=== PATIENT | female | born 1965 | race African-American/Black ===

== ENCOUNTER → 2017-04-30 | Day surgery (SDC) | payer OTHER ==
[~2017-04-30] MED LIST: ACETAMINOPHEN/HYDROcodone 325 MG/5 MG TAB ONE; BUPIVACAINE/EPINEPHRINE 0.5% 50 ML VIAL ONE; DICL75 PO; HEPARIN SODIUM - IV 10,000 UNITS/10 ML VIAL ONE; ISOSULFAN BLUE 50 MG/5 ML VIAL SQ ONE; KETOROLAC TROMETHAMINE 30 MG/ML (IVP) VIAL IV PUSH ONE; LACTATED RINGER'S 1000 ML INJ 1,000 ML ONE; LISI5 PO; MEPERIDINE HCL 25 MG/ML VIAL ONE; MIDAZOLAM HCL 2 MG/2 ML VIAL ONE; ONDANSETRON HCL 4 MG/2 ML VIAL IV PUSH ONE; PROPOFOL 200 MG/20 ML AMP IV ONE; SODIUM CHLORIDE 0.9% INJ 10 ML ONE; ceFAZolin 2 GM PREMIX 50 ML ONE
--- NOTE | 2017-04-30 14:45 | TN ---
cc: JOE WAGNER M.D. DATE OF SURGERY: 04/30/2017 PREOPERATIVE DIAGNOSIS Right breast cancer, possibly metastatic. POSTOPERATIVE DIAGNOSIS Right breast cancer, possibly metastatic. PROCEDURE PERFORMED 1. Bcagvl-K-Juvf placement left subclavian vein with intraoperative fluoroscopy. 2. Injection and excision sentinel lymph node right axilla x5. SURGEON Joe Wagner MD SATELLITE MANAGER LOY Nava ANESTHESIA General LMA. COMPLICATIONS None. INDICATION FOR PROCEDURE Ms. Stone is a very pleasant 51-year-old female who felt a mass in her right breast. She underwent imaging and biopsy and this was found to be a poorly differentiated ductal carcinoma. A preoperative MRI imaging demonstrated questionable adenopathy in the right axilla concerning for metastatic disease. Because of her young age and her very aggressive tumor and the possibility of metastasis, she was advised to undergo neoadjuvant chemotherapy with Dr. Silver. Dr. Silver asked that Wswlyt-Q-Ouzy be placed. Risks and benefits of Cdsqvr-R-Shmq placement as well as sentinel lymph node excision was discussed with her in the office and she was agreeable. DETAILS OF PROCEDURE The patient was identified, brought to the operating room and placed supine on the operating table. After adequate general anesthesia was achieved with LMA, 5 ccs of isosulfan blue was injected into the right breast in the periareolar position as well as in the tumor itself in the lower outer quadrant. This was then massaged in the breast. The anterior chest and neck was then prepped and draped in standard surgical fashion. Attention was first directed to the left subclavian area where 0.25% Marcaine was injected around the left clavicle. The left subclavian vein was then accessed without difficulty using 18 gauge needle. Guidewire was advanced and followed to the level of superior vena cava. The subcutaneous pocket was then fashioned in the left anterior chest using sharp dissection. Next, the dilator was placed over the guidewire and followed to the level of superior vena cava under direct fluoroscopic vision. Next, the guidewire was removed and the catheter was inserted into the introducer. Catheter was advanced to 20 cm, was placed in the superior vena cava adjacent to the right atrium. The catheter was then brought down to the pocket and attached to the port with a locking device. Port was withdrawn and found to have good blood return and easy ability to flush. The port was then secured in the subcutaneous pocket using a 2-0 Prolene suture. Pocket was then injected with additional local anesthetic and closed in two layers using a 3-0 and 4-0 Vicryl. Sterile dressings were applied. Attention was now directed to the right axilla. The patient was reprepped and draped and gloves and gown were changed. The right axillary lymph node site was marked by preoperative imaging. It was confirmed with fluoroscopy. 0.25% Marcaine was injected and a transverse incision was made directly overlying the node. Dissection proceeded down into the subcutaneous tissue in the axilla proper where we immediately identified multiple blue channels going into a blue node. This blue node was grasped and excised and found to have a count of 13,587. It was blue and labeled sentinel node number one. Adjacent to this node was also a blue node which was excised and it had a count of 794. Adjacent to this node was a third blue node that was excised and had a count of 3156. After this we could see no other blue dye. Using the probe we identified two additional nodes. [place] node #4 was more proximal and up under the pectoralis major muscle. It had a 10-second count of 1078 and did not have any blue dye and sentinel node #5 had a count of 1718, also did not have any blue dye. Once we did this there was no other significant radioactivity in the axilla. By direct palpation I could not palpate any nodes. By direct visualization there was no blue dye in the axilla. Therefore, we elected to conclude the sentinel node procedure. The wound was copiously irrigated with normal saline solution. A 7-Salvadorean drain was brought in and placed into the axilla through a separate stab wound after anesthetizing the skin and subcutaneous tissue with 0.25% Marcaine. The wound was irrigated out a third time with normal saline solution. The wound was then closed in two layers using a 3-0 and 4-0 Vicryl. Drain was secured with 3-0 Nylon. Drain was then infiltrated with 10 ccs of 0.25% Marcaine. Sterile dressings were applied and the patient was awakened, brought to recovery in stable condition. Please note the OIL WELL PU[employer]ER religious assistant was medically necessary due to her specialized surgical skills and specific knowledge of my surgical technique. MD ALEX Pretty /2:15 PM /2:23 PM VIDAL
== END | disposition home or self-care (01) ==
LOC: ESDC 07:14
PROVIDERS: ATTEND Surgery Trauma Surgery
DX: C50.911 Malignant neoplasm of unspecified site of right female breast (principal)
CPT/HCPCS: 00532; 01610; 36561; 38525; 38792; 77001; 88307; C1788; J0690; J1644; J1885; J2175; J2250; J2405; J3010; J7120; Q9968

== ENCOUNTER 2017-06-10 22:54 | Inpatient (IN) | payer OTHER ==
[~2017-06-10] VITALS: Ht 167.6 cm; Wt 97.9 kg
[~2017-06-10 22:54] MED LIST changes: -ACETAMINOPHEN/HYDROcodone 325 MG/5 MG TAB ONE; -BUPIVACAINE/EPINEPHRINE 0.5% 50 ML VIAL ONE; -HEPARIN SODIUM - IV 10,000 UNITS/10 ML VIAL ONE; -ISOSULFAN BLUE 50 MG/5 ML VIAL SQ ONE; -KETOROLAC TROMETHAMINE 30 MG/ML (IVP) VIAL IV PUSH ONE; -LACTATED RINGER'S 1000 ML INJ 1,000 ML ONE; -MEPERIDINE HCL 25 MG/ML VIAL ONE; -MIDAZOLAM HCL 2 MG/2 ML VIAL ONE; -ONDANSETRON HCL 4 MG/2 ML VIAL IV PUSH ONE; -PROPOFOL 200 MG/20 ML AMP IV ONE; -SODIUM CHLORIDE 0.9% INJ 10 ML ONE; -ceFAZolin 2 GM PREMIX 50 ML ONE
[2017-06-10 22:58] VITALS: BP 176/78; PULSE 103; RESP 16; TEMP 98.7; O2SAT 100
[2017-06-10] MEDS ORDERED: SODIUM CHLOR 0.9% 1000 ML INJ 1,000 ML IV SCH (23:19)
[2017-06-10 23:30] VITALS: BP 160/89; PULSE 98; RESP 18; O2SAT 98
[2017-06-10] MEDS ORDERED: SODIUM CHLORIDE 0.9% FLUSH 10 ML FLUSH IV FLUSH PRN (23:30)
[2017-06-10] MEDS ORDERED: FAMOTIDINE 20 MG/2 ML VIAL IV PUSH ONE (23:30)
--- NOTE | 2017-06-10 23:32 | PD ---
HPI Chief Complaint: GI Complaint Time Seen by Provider: 23:09 Travel History International Travel<30 days: No Contact w/Intl Traveler<30days: No Traveled to known affect area: No History of Present Illness HPI Patient is a 52-year-old female with history of breast cancer currently on her second round of chemotherapy which she received on Sunday, presents to ER with c /o of nausea and vomiting. Patient reports that starting around 7 PM tonight, she has been feeling nauseous. Patient reports her vomitus started out clear and then she began to notice some specks of bright red blood. Reports that she is not on any anticoagulants at this time, reports no abdominal pain. Patient reports that she just feels nauseous. Patient reports that she did feel nauseous after her first round of chemotherapy, patient is concerned for this specks of red blood in her vomitus. Patient with no chest pain or shortness of breath at this time. She denies fevers, does report chills. Patient with no other complaints at this time. PFSH Past Medical History Blood Disorders: No Cancer: No Cardiovascular Problems: Yes Chemotherapy: Yes (breast CA) Diminished Hearing: No Endocrine: No Hypertension: Yes Immune Disorder: No Musculoskeletal: No Neurologic: No Psychiatric: No Reproductive: No Tetanus Vaccination: Unknown Influenza Vaccination: No ?: Not Menopausal: Yes : 4 Para: 4 Dilation and Curettage (D&C): Yes Tubal Ligation: Yes Past Surgical History Abdominal Surgery: Yes Cardiac Surgery: No Gynecologic Surgery: Yes (TUBAL LIGATION) Thoracic Surgery: No Social History Alcohol Use: Yes (SOCIAL) Tobacco Use: No Substance Use: No Allergies-Medications (Allergen,Severity, Reaction): Coded Allergies: codeine (Unverified Allergy, Intermediate, itching, 05/08/17) shellfish derived (Unverified Allergy, Mild, 05/08/17) morphine (Unverified Adverse Reaction, Intermediate, ITCHING, 05/08/17) Reported Meds & Prescriptions Reported Meds & Active Scripts Active Reported Claritin (Loratadine) 10 Mg Cap 10 Mg PO DAILY Oxycodone-Acetaminophen 5-325 mg Tab 1 Tab PO Q6H PRN Prochlorperazine Maleate 10 Mg Tab 10 Mg PO Q6H PRN Alprazolam 0.25 Mg Tab 0.25 Mg PO TID PRN Review of Systems General / Constitutional: No: Fever Eyes: No: Visual changes HENT: No: Headaches Cardiovascular: No: Chest Pain or Discomfort, Palpitations, Irregular Rhythm, Tachycardia Respiratory: No: Cough, Shortness of Breath Gastrointestinal: Positive: Nausea, Vomiting, Hematemesis, No: Abdominal Pain, Hematochezia Genitourinary: No: Dysuria Musculoskeletal: No: Pain Skin: No Rash Neurologic: No: Weakness Psychiatric: No: Depression Endocrine: No: Polydipsia Hematologic/Lymphatic: No: Easy Bruising Physical Exam Narrative GENERAL: Mild distress SKIN: Focused skin assessment warm/dry. HEAD: Atraumatic. Normocephalic. EYES: Pupils equal and round. No scleral icterus. No injection or drainage. ENT: No nasal bleeding or discharge. Mucous membranes pink and moist. NECK: Trachea midline. No JVD. CARDIOVASCULAR: Regular rate and rhythm. No murmur appreciated. RESPIRATORY: No accessory muscle use. Clear to auscultation. Breath sounds equal bilaterally. GASTROINTESTINAL: Abdomen soft, non-tender, nondistended. Hepatic and splenic margins not palpable. MUSCULOSKELETAL: No obvious deformities. No clubbing. No cyanosis. No edema. NEUROLOGICAL: Awake and alert. No obvious cranial nerve deficits. Motor grossly within normal limits. Normal speech. PSYCHIATRIC: Appropriate mood and affect; insight and judgment normal. Data Data Last Documented VS Vital Signs Date Time Temp Pulse Resp B/P (MAP) Pulse Ox O2 Delivery O2 Flow Rate FiO2 06/10/17 23:30 98 18 160/89 (112) 98 Room Air 06/10/17 22:58 98.7 Orders Orders Complete Blood Count With Diff (06/10/17 23:19) Comprehensive Metabolic Panel (06/10/17 23:19) Lipase (06/10/17 23:19) Prothrombin Time / Inr (Pt) (06/10/17 23:19) Act Partial Throm Time (Ptt) (06/10/17 23:19) Urinalysis - C+S If Indicated (06/10/17 23:19) Iv Access Insert/Monitor (06/10/17 23:19) Ecg Monitoring (06/10/17 23:19) Sodium Chlor 0.9% 1000 Ml Inj (Ns 1000 M (06/10/17 23:19) Sodium Chloride 0.9% Flush (Ns Flush) (06/10/17 23:30) Famotidine Inj (Pepcid Inj) (06/10/17 23:30) Blood Culture (06/10/17 23:27) Pantoprazole Inj (Protonix Inj) (06/10/17 23:45) Cefepime Inj (Maxipime Inj) (06/11/17 01:45) Vancomycin Inj (Vancomycin Inj) (06/11/17 01:45) Labs Laboratory Tests Test 06/10/17 23:30 White Blood Count 76.2 TH/MM3 Red Blood Count 4.27 MIL/MM3 Hemoglobin 10.7 GM/DL Hematocrit 33.9 % Mean Corpuscular Volume 79.4 FL Mean Corpuscular Hemoglobin 25.0 PG Mean Corpuscular Hemoglobin Concent 31.5 % Red Cell Distribution Width 14.7 % Platelet Count 391 TH/MM3 Mean Platelet Volume 8.2 FL CBC Comment AUTO DIFF Differential Total Cells Counted 100 Neutrophils % (Manual) 90 % Band Neutrophils % 5 % Lymphocytes % 4 % Basophils % 1 % Neutrophils # (Manual) 72.4 TH/MM3 Differential Comment FINAL DIFF MANUAL Platelet Estimate NORMAL Platelet Morphology Comment NORMAL Prothrombin Time 10.5 SEC Prothromb Time International Ratio 1.0 RATIO Activated Partial Thromboplast Time 25.9 SEC Blood Urea Nitrogen 7 MG/DL Creatinine 0.76 MG/DL Random Glucose 101 MG/DL Total Protein 6.9 GM/DL Albumin 3.5 GM/DL Calcium Level 8.5 MG/DL Alkaline Phosphatase 108 U/L Aspartate Amino Transf (AST/SGOT) 10 U/L Alanine Aminotransferase (ALT/SGPT) 24 U/L Total Bilirubin 0.4 MG/DL Sodium Level 140 MEQ/L Potassium Level 3.7 MEQ/L Chloride Level 107 MEQ/L Carbon Dioxide Level 24.6 MEQ/L Anion Gap 8 MEQ/L Estimat Glomerular Filtration Rate 97 ML/MIN Lipase 74 U/L [facility] Medical Decision Making Medical Screen Exam Complete: Yes Emergency Medical Condition: Yes Interpretation(s) Vital Signs Date Time Temp Pulse Resp B/P (MAP) Pulse Ox O2 Delivery O2 Flow Rate FiO2 06/10/17 22:58 98.7 103 16 176/78 (110) 100 Room Air Differential Diagnosis Differential includes GI bleed, gastritis, gastroenteritis, gastric ulcer, electrolyte abnormalities, anemia, chemotherapy reaction Narrative Course Patient is a pleasant 52-year-old female with history of breast cancer, presents to the emergency room after she had an episode of nausea and vomiting with bright red blood in her vomitus prior to coming to the ER. Patient reports that she had her second course of chemotherapy on Sunday, reports that she had nausea and vomiting after her first course of chemotherapy. Patient this time with no abdominal pain, reports nausea. She is Currently is not on any anticoagulants. Her vital signs are stable. Patient with most likely gastritis versus gastroenteritis. Plan to monitor on a cardiac rehabilitation specialist. Lab Work including LFTs ordered. IV pepcid and protonix and IVF ordered CBC & BMP Diagram 06/10/17 23:30 Total Protein 6.9, Albumin 3.5, Calcium Level 8.5, Alkaline Phosphatase 108, Aspartate Amino Transf (AST/SGOT) 10 L, Alanine Aminotransferase (ALT/SGPT) 24, Total Bilirubin 0.4 patient with 76.2 wbc, case reviewed with Dr. Escobedo firestop/containment worker oncologist. she probably received a dose of was home when shot on Sunday after her chemotherapy , this would not explain her an 76.2 elevated wbc count. patient will need a workup for bacteremia. She has been pancultured. Cefepime and vancomycin ordered. Case reviewed with [facility] who accepts pt to at Dr. Yousif service Diagnosis Primary Impression: Leukocytosis, unspecified Additional Impression: Nausea & vomiting Admitting Information Admitting Physician Requests: Admit Ileana Davenport DO Jun 10, 2017 23:32
[2017-06-10] MEDS ORDERED: PROC10TA PO (23:33)
[2017-06-10] MEDS ORDERED: ALPR0.25 PO (23:33)
[2017-06-10] MEDS ORDERED: CLAR10CA3 PO (23:33)
[2017-06-10] MEDS ORDERED: OXYC1TAB63 PO (23:33)
[2017-06-10] MEDS ORDERED: PANTOPRAZOLE SODIUM 40 MG VIAL IVP ONE (23:45)
[2017-06-10 23:52] LABS: HEMATOCRIT 33.9 % (35.0-46.0); MEAN CELL VOLUME 79.4 FL (80.0-100.0); MEAN CORPUSCULAR HGB CONC 31.5 % (32.0-36.0); PLATELET COUNT 391 TH/MM3 (150-450); RED BLOOD COUNT 4.27 MIL/MM3 (4.00-5.30); RED CELL DISTRIBUTION WIDTH 14.7 % (11.6-17.2); WHITE BLOOD COUNT 76.2 TH/MM3 (4.0-11.0)
[2017-06-11] VITALS (10 sets, daily range): BP systolic 130–178; BP diastolic 63–82; PULSE 92–110; RESP 16–18; TEMP 97.1–99.5; O2SAT 96–100
[2017-06-11 00:01] LABS: APTT (PATIENT) 25.9 SEC (24.3-30.1); PROTHROMBIN TIME - PATIENT 10.5 SEC (9.8-11.6)
[2017-06-11 00:12] LABS: ALT (GPT) 24 U/L (10-53); ANION GAP 8 MEQ/L (5-15); AST (GOT) 10 U/L (15-37); BICARBONATE 24.6 MEQ/L (21.0-32.0); BLOOD UREA NITROGEN 7 MG/DL (7-18); CHLORIDE 107 MEQ/L (98-107); GLOMERULAR FILTRATION RATE 97 ML/MIN (>89); POTASSIUM 3.7 MEQ/L (3.5-5.1); SODIUM (NA) 140 MEQ/L (136-145)
[2017-06-11 00:14] LABS: ALKALINE PHOSPHATASE 108 U/L (45-117); TOTAL BILIRUBIN ADULT 0.4 MG/DL (0.2-1.0)
[2017-06-11 00:25] LABS: HEMO FLAGS AUTO DIFF
[2017-06-11 00:27] LABS: BANDS 5 % (0-6); BASOPHILS 1 % (0-2); NEUTROPHIL # MANUAL DIFF 72.4 TH/MM3 (1.8-7.7); POLYS (SEG NEUTROPHILS) 90 % (16-70); WBC DIFF SAMPLE 100
[2017-06-11 00:28] LABS: PLATELET ESTIMATE SMEAR NORMAL (NORMAL); PLATELET MORPHOLOGY NORMAL (NORMAL); SCAN/DIFF FINAL DIFF MANUAL
[2017-06-11] MEDS ORDERED: CEFEPIME INJ 2,000 MG in SODIUM CHLORIDE 0.9% INJ 100 ML IV ONE (01:45)
[2017-06-11] MEDS ORDERED: VANCOMYCIN INJ 1,450 MG in SODIUM CHLORID 0.9% 500 ML INJ 500 ML IV ONE (01:45)
[2017-06-11 02:08] LABS: BACTERIA, URINE RARE /hpf; BLOOD, URINE NEG (NEG); COMMENT (UR) CULT NOT INDICATED; CULTURE IF INDICATED CULT NOT INDICATED; GLUCOSE,URINE NEG (NEG); KETONE, URINE NEG (NEG); NITRITE,URINE NEG (NEG); PH, URINE 6.5 (5.0-8.5); URINE COLOR COLORLESS (YELLW/STRAW)
[2017-06-11] MEDS ORDERED: ACETAMINOPHEN 325 MG TAB PO PRN (02:15)
[2017-06-11] MEDS ORDERED: LACTULOSE SYRUP 20 GM/30 ML CUP PO PRN (02:15)
[2017-06-11] MEDS ORDERED: SENNOSIDES 8.6 MG TAB PO PRN (02:15)
[2017-06-11] MEDS ORDERED: NALOXONE HCL 0.4 MG/ML AMP IV PUSH PRN (02:15)
[2017-06-11] MEDS ORDERED: SODIUM CHLORIDE 0.9% FLUSH 10 ML FLUSH IV FLUSH PRN (02:15)
[2017-06-11] MEDS ORDERED: Vancomycin Consult Pharmacy 1 EA OTHER SCH (02:15)
[2017-06-11] MEDS ORDERED: BISACODYL 10 MG SUPP RECTAL PRN (02:15)
[2017-06-11] MEDS ORDERED: MAGNESIUM HYDROXIDE SUSP 30 ML CUP PO PRN (02:15)
[2017-06-11] MEDS: SODIUM CHLOR 0.9% 1000 ML INJ 1,000 ML IV SCH ×2 (02:35→14:48)
[2017-06-11] MEDS: PANTOPRAZOLE SODIUM 40 MG VIAL IV PUSH SCH (05:55)
[2017-06-11] MEDS: ONDANSETRON HCL 4 MG/2 ML VIAL IVP PRN ×3 (05:58→19:00)
[2017-06-11] MEDS: CEFEPIME INJ 2,000 MG in SODIUM CHLORIDE 0.9% INJ 100 ML IV SCH ×2 (08:34→16:23)
[2017-06-11] MEDS: SODIUM CHLORIDE 0.9% FLUSH 10 ML FLUSH IV FLUSH SCH ×2 (08:35→19:45)
[2017-06-11 11:05] LABS: HEMATOCRIT 31.8 % (35.0-46.0); MEAN CELL VOLUME 80.3 FL (80.0-100.0); MEAN CORPUSCULAR HEMOGLOBIN 25.3 PG (27.0-34.0); MEAN CORPUSCULAR HGB CONC 31.5 % (32.0-36.0); PLATELET COUNT 347 TH/MM3 (150-450); RED BLOOD COUNT 3.96 MIL/MM3 (4.00-5.30); RED CELL DISTRIBUTION WIDTH 14.7 % (11.6-17.2); WHITE BLOOD COUNT 63.5 TH/MM3 (4.0-11.0)
[2017-06-11 11:06] LABS: REVIEW FLAG FINAL
--- NOTE | 2017-06-11 12:12 | HHI.PR ---
Objective Objective Results - Vital Signs Date Time Temp Pulse Resp B/P (MAP) Pulse Ox O2 Delivery O2 Flow Rate FiO2 06/11/17 06:02 99.4 110 18 142/73 (96) 100 06/11/17 05:13 06/11/17 04:30 106 18 156/70 (98) 100 Room Air 06/11/17 03:18 98 18 178/80 (112) 96 Room Air 06/11/17 02:55 99 06/11/17 01:54 106 18 162/72 (102) 99 Room Air 06/11/17 00:20 98 18 178/82 (114) 98 06/10/17 23:30 98 18 160/89 (112) 98 Room Air 06/10/17 22:58 98.7 103 16 176/78 (110) 100 Room Air I/O 06/10/17 06/10/17 06/10/17 06/11/17 06/11/17 06/11/17 07:00 15:00 23:00 07:00 15:00 23:00 Intake Total 1100 ml 500 ml Output Total 300 ml Balance 800 ml 500 ml Intake IV Total 1100 ml 500 ml Output Urine Total 300 ml # Voids 1 Result Diagram: 06/11/17 1100 06/10/17 2330 A/P Assessment and Plan [id number] Beartice Ochoa Jun 11, 2017 11:52
--- NOTE | 2017-06-11 12:54 | MH ---
cc: MIKE VEE MD DATE OF ADMISSION: 06/11/2017 DATE OF 1965 CHIEF COMPLAINT Nausea and vomiting, diarrhea. TRAVEL IN LAST 30 DAYS None. HISTORY OF PRESENT ILLNESS This is a pleasant 52-year-old black female who was recently diagnosed with breast cancer in February of 2017. She has started a five-month chemotherapy regimen and had her second treatment this past Sunday which was 3 days ago. She noticed 48 hours before admission nausea and vomiting. She notes also approximately three loose diarrhea stools yesterday. The patient stated that she also had chills. Her temperature was 99.2. She felt that her symptoms were uncontrolled to the point that she needed to come to the emergency room for further evaluation. The patient denied any headaches. No chest pain. No shortness of breath. She did feel weak, especially when standing and felt her heart racing when she attempted any type of activity. PAST MEDICAL HISTORY 1. Recent diagnosis of breast cancer in February of 2017. 2. Hypertension. PAST SURGICAL HISTORY 1. Tubal ligation. 2. Port placement. 3. Lymph nodes removed in right axillary area, February 2017. ALLERGIES CODEINE. SHELLFISH MORPHINE REPORTED MEDICATIONS 1. Claritin. 2. Oxycodone. 3. Xanax. 4. Prochlorperazine. SOCIAL HISTORY The patient is currently , lives with her daughter. Denies any alcohol, tobacco or illicit drug use. She used to have a rare social occasional alcohol but denies any at this current time. REVIEW OF SYSTEMS A 12-point review was obtained. Positives include what is mentioned in the HPI symptom-norris. Nausea, vomiting, diarrhea, palpitations, generalized weakness and fatigue, chills. Other symptoms negative or unremarkable. PHYSICAL EXAMINATION VITAL SIGNS: Temp is 99.4, pulse labile between 98 and 110, respiratory rate 18, blood pressure initially on admission 178/80, now 142/73, O2 sat 100 on room air. GENERAL: A well-nourished black female, looks to be her stated age. She is ambulatory, fixing to go into the restroom. Denies any symptoms of dizziness or pain at this time. SKIN: [place] mucous membranes. Warm and dry. HEENT: Atraumatic, normocephalic. SATURNINO at 2. Mucous membranes dry. No scleral icterus. NECK: Supple. CARDIOVASCULAR: S1-S2, the rhythm is regular with some mild tachycardia. No edema. Pulses intact. EXTREMITIES: Warm. LUNGS: Essentially clear anteriorly and posteriorly without wheezes or rhonchi. She does have some mild diminished sounds in her bases. GI: Abdomen round, soft, nontender, nondistended. MUSCULOSKELETAL: No obvious deformities. Moves extremities with purpose. NEUROLOGICALLY: She is alert. Answers questions appropriately. Tongue is midline. Equal receiver. PSYCHIATRIC: Mood and affect are appropriate for her current status. DIAGNOSTIC DATA WBC count initially 76.2, now 63.5, hemoglobin 10, hematocrit 31.8, platelet count 347, MCH 25.3, MCHC 31.5, neutrophil percentage band 90, normal platelet estimate. PT/INR is 1. PT is 10.58, APTT 25.9. Chemistry: Sodium 140, potassium 3.7, chloride 107, carbon dioxide 24.6, BUN 7, creatinine 0.76. AST is 10. Procalcitonin is pending. Urine is clear with rare bacteria. Culture is not indicated. IMAGING STUDIES N/A. ASSESSMENT AND PLAN 1. Leukocytosis unspecified. 2. Nausea and vomiting, possible gastroenteritis. 3. History of breast cancer currently receiving chemotherapy treatment. 4. History of hypertension which is now benign. 5. Dizziness. 6. Tachycardia. Out plan is to admit the patient for IV fluids and IV hydration, continuous ECG monitoring with IV access. The patient received a dose of Maxipime and vancomycin IV as well as propranolol 40 mg IV in the emergency. Blood cultures are pending. Medical oncology consult for their expert opinion. SCDs. O2 at 2 liters per nasal cannula if needed to maintain her sats greater than 92. P.r.n. medications for pain. We will continue monitoring her labs and blood levels, Bowel regimen. Currently the patient is feeling better since the IV fluids have been initiated. She is still having some nausea but denies any further vomiting. No further diarrhea. We will continue the diet vancomycin and cefepime, the IV Protonix for PUD prophylaxis and her nausea and vomiting. The patient is full code, full aggressive care. The patient will be evaluated per her oncologist and we will continue to follow. Her hospital treatment will be based on the findings during this hospital course. Dictated by: LOY Bullard Mike Vee MD MK/SSB /11:40 AM /12:49 PM seen, examined by myself, Dr Vee, today Discussed with patient Discussed with mid level provider Discussed with nurse Patient has right sided metastatic breast cancer Obesity Leukemoid reaction Admitted with nausea vomiting and diarrhea Already started to improve Oncologist following Follow electrolytes and replace as needed Follow renal function The exam, history, and the medical decision-making described in the above note were completed with the assistance of the mid-level provider. I reviewed the findings presented. I attest that I had a [id number] encounter with the patient on the same day, and personally performed and documented my assessment and findings in the medical record. VIDAL
[2017-06-11] MEDS: VANCOMYCIN 1,500 MG/NS 500 ML IV SCH ×2 (19:20)
[2017-06-12] VITALS (8 sets, daily range): BP systolic 117–158; BP diastolic 69–75; PULSE 88–103; RESP 16–18; TEMP 96.9–98.8; O2SAT 94–100
[2017-06-12] MEDS: CEFEPIME INJ 2,000 MG in SODIUM CHLORIDE 0.9% INJ 100 ML IV SCH (00:55)
[2017-06-12] MEDS: VANCOMYCIN 1,500 MG/NS 500 ML IV SCH ×2 (05:05)
[2017-06-12] MEDS: PANTOPRAZOLE SODIUM 40 MG VIAL IV PUSH SCH (05:05)
[2017-06-12] MEDS: SODIUM CHLOR 0.9% 1000 ML INJ 1,000 ML IV SCH ×2 (05:06→20:17)
[2017-06-12] MEDS: DEXAMETHASONE SOD PHOS 4 MG/ML VIAL IV PUSH SCH ×3 (07:41→20:18)
[2017-06-12] MEDS: GRANISETRON HCL 1 MG/ML VIAL IV PUSH SCH (07:41)
[2017-06-12] MEDS: SODIUM CHLORIDE 0.9% FLUSH 10 ML FLUSH IV FLUSH SCH ×2 (07:45→20:16)
--- NOTE | 2017-06-12 08:39 | MB ---
cc: NANETTE VEE MD, ABDUL J. M.D. DATE OF CONSULTATION: 06/11/2017 REASON FOR CONSULTATION Consult requested by Dr. Vee for evaluation of breast cancer in a patient who is admitted with intractable nausea, vomiting and leukocytosis. HISTORY OF PRESENT ILLNESS Lena is a pleasant 52-year-old female. She was recently diagnosed with triple-negative right breast cancer. She had an MRI of the breast which showed a 2 cm solitary mass in the right breast. The left breast was negative. The patient had an Dmikwd-N-Ziad placed and had axillary lymph node sampling with 1/5 lymph nodes positive for metastatic disease. She was started on neoadjuvant dose-dense Adriamycin and Cytoxan chemotherapy on May 21. With the first dose she had a severe headache and intractable nausea. This resolved after a few days. She had a second cycle of chemotherapy last week Sunday. She was given Neulasta after the chemotherapy. The patient stated over the weekend she had intractable nausea and started vomiting. She noticed blood when she vomited. She decided to come to the emergency room. In the emergency room the patient had a blood test. The CBC showed white count 76,000, hemoglobin 10.7, hematocrit 33.9, platelet count 391. The comprehensive metabolic profile is normal. The patient is now admitted to the hospital for possible sepsis and intractable nausea and vomiting. REVIEW OF SYSTEMS The patient denies any fever. She denies any headaches at this time. With the first chemotherapy she took Zofran and she had severe headaches. This time she did not take Zofran, instead she took Compazine and she had severe nausea and vomiting. She also noticed flecks of blood in the vomitus which made her concerned and she came to the emergency room. She is not having any further vomiting but she is still has nausea. She denies any shortness of breath. She denies any headaches or dizziness. She has anxiety. The rest of the review of systems is negative. PAST MEDICAL HISTORY 1. Arthritis. 2. Hypertension. 3. Lyme disease. 4. Right breast cancer. PAST SURGICAL HISTORY 1. Right breast biopsy. 2. Tubal ligation. ALLERGIES SHELLFISH. MEDICATIONS 1. Atenolol. 2. Hydrochlorothiazide. 3. Meloxicam. FAMILY HISTORY Mother from hypertension. Father from colon cancer. The patient has three brothers, seven sisters. One of the sisters had breast cancer. The patient has two sons and two daughters. SOCIAL HISTORY The patient is legally . She is a [employer]. She has never smoked cigarettes. She occasionally drinks alcohol. PHYSICAL EXAMINATION GENERAL: A well-developed, well-nourished -[place] female in mild distress due to intractable nausea or vomiting. VITAL SIGNS: Temperature 97.1, heart rate 108, blood pressure 154/70, O2 suture saturation 99%. HEENT: PERRLA. EOMI. Anicteric. No oral lesions noted. NECK: Supple. LYMPH NODES: There is no cervical, supraclavicular or axillary lymphadenopathy noted. LUNGS: Clear. No wheezing, rhonchi or rales. HEART: Regular rate and rhythm. ABDOMEN: Soft, nontender. No hepatosplenomegaly. EXTREMITIES: No pedal edema. NEUROLOGIC: Awake, alert, oriented x3. SKIN: No significant lesions are noted. ASSESSMENT 1. Triple-negative right breast cancer, currently on neoadjuvant dose-dense Adriamycin and Cytoxan chemotherapy. The last chemotherapy was last Sunday. 2. Intractable nausea and vomiting due to the chemotherapy. 3. Sarah-Boland syndrome. 4. Leukocytosis due to the Neulasta. I do not think the leukocytosis is due to an infection. PLAN I have reviewed her available records and I had an extensive discussion with the patient regarding her current symptoms which are due to the chemotherapy. With the first cycle of chemotherapy she was taking Zofran for the nausea which gave her severe headaches. This time she did not take the Zofran because of the headache and she was taking Compazine which did not control her nausea. 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 The patient is on a PPI. She stated she is not vomiting anymore but she still has nausea. I will give her Kytril and Decadron for the intractable nausea and vomiting.. We discussed that with the next chemotherapy I will prescribe Emend. Also, she has severe leukocytosis with left shift; this is due to the Neulasta. The patient does not have any fever, she does not look septic, so I do not think that the leukocytosis is due to an infection. My recommendation is to stop the antibiotics. Her blood cultures have been done. Urinalysis is negative. The patient has asked questions and these were answered to her satisfaction. Thank you for asking my opinion. Rosette Silver MD /BT /11:12 PM /8:22 AM
[2017-06-12 08:46] LABS: AUTOMATED NEUTROPHIL # 45.9 TH/MM3 (1.8-7.7); BASOPHIL # 0.1 TH/MM3 (0-0.2); BASOPHIL % 0.1 % (0.0-2.0); EOSINOPHIL # 0.2 TH/MM3 (0-0.4); EOSINOPHIL % 0.4 % (0.0-4.0); HEMATOCRIT 28.7 % (35.0-46.0); LYMPH % 2.1 % (9.0-44.0); MEAN CELL VOLUME 80.3 FL (80.0-100.0); MEAN CORPUSCULAR HEMOGLOBIN 26.4 PG (27.0-34.0); MEAN CORPUSCULAR HGB CONC 32.9 % (32.0-36.0); MONO % 0.9 % (0.0-8.0); NEUT % 96.5 % (16.0-70.0); PLATELET COUNT 267 TH/MM3 (150-450); RED BLOOD COUNT 3.57 MIL/MM3 (4.00-5.30); RED CELL DISTRIBUTION WIDTH 14.5 % (11.6-17.2); WHITE BLOOD COUNT 47.6 TH/MM3 (4.0-11.0)
[2017-06-12 08:55] LABS: HEMO FLAGS AUTO DIFF
[2017-06-12 09:08] LABS: BICARBONATE 24.4 MEQ/L (21.0-32.0); POTASSIUM 3.5 MEQ/L (3.5-5.1)
[2017-06-12 10:24] LABS: BANDS 10 % (0-6); BASOPHILS 1 % (0-2); METAMYELOCYTES 1 % (0-1); NEUTROPHIL # MANUAL DIFF 45.7 TH/MM3 (1.8-7.7); PLATELET ESTIMATE SMEAR NORMAL (NORMAL); PLATELET MORPHOLOGY NORMAL (NORMAL); POLYS (SEG NEUTROPHILS) 85 % (16-70); SCAN/DIFF FINAL DIFF MANUAL; TOXIC VACUOLATION PRESENT (NONE SEEN); WBC DIFF SAMPLE 100
[2017-06-12 10:25] LABS: DOHLE BODIES PRESENT (NONE SEEN)
--- NOTE | 2017-06-12 11:16 | PD.ONC.PN ---
Subjective Subjective Remarks Afebrile overnight. Patient feeling much better today. Wants her diet advanced as she is tolerating liquid diet and is hungry. Not nauseated. No further vomiting. No diarrhea---in fact she feels constipated. Objective Data Date Time Temp Pulse Resp B/P (MAP) Pulse Ox O2 Delivery O2 Flow Rate FiO2 06/12/17 10:00 21 06/12/17 05:00 88 06/12/17 04:00 97.0 93 17 141/71 (94) 94 06/12/17 00:00 96 06/12/17 00:00 98.6 96 18 117/69 (85) 100 06/11/17 21:23 21 06/11/17 20:00 99.5 94 17 141/76 (97) 99 06/11/17 16:00 98.5 92 16 140/66 (90) 100 06/11/17 12:00 97.7 99 16 130/63 (85) 98 Result Diagram: 06/12/17 0755 06/12/17 0755 Laboratory Results Laboratory Tests Test 06/12/17 07:55 White Blood Count 47.6 TH/MM3 Red Blood Count 3.57 MIL/MM3 Hemoglobin 9.4 GM/DL Hematocrit 28.7 % Mean Corpuscular Volume 80.3 FL Mean Corpuscular Hemoglobin 26.4 PG Mean Corpuscular Hemoglobin Concent 32.9 % Red Cell Distribution Width 14.5 % Platelet Count 267 TH/MM3 Mean Platelet Volume 8.6 FL Neutrophils (%) (Auto) 96.5 % Lymphocytes (%) (Auto) 2.1 % Monocytes (%) (Auto) 0.9 % Eosinophils (%) (Auto) 0.4 % Basophils (%) (Auto) 0.1 % Neutrophils # (Auto) 45.9 TH/MM3 Lymphocytes # (Auto) 1.0 TH/MM3 Monocytes # (Auto) 0.4 TH/MM3 Eosinophils # (Auto) 0.2 TH/MM3 Basophils # (Auto) 0.1 TH/MM3 CBC Comment AUTO DIFF Differential Total Cells Counted 100 Neutrophils % (Manual) 85 % Band Neutrophils % 10 % Lymphocytes % 1 % Monocytes % 2 % Basophils % 1 % Neutrophils # (Manual) 45.7 TH/MM3 Metamyelocytes 1 % Differential Comment FINAL DIFF MANUAL Toxic Vacuolation PRESENT Dohle Bodies PRESENT Platelet Estimate NORMAL Platelet Morphology Comment NORMAL Blood Urea Nitrogen 7 MG/DL Creatinine 0.66 MG/DL Random Glucose 86 MG/DL Calcium Level 8.0 MG/DL Sodium Level 139 MEQ/L Potassium Level 3.5 MEQ/L Chloride Level 109 MEQ/L Carbon Dioxide Level 24.4 MEQ/L Anion Gap 6 MEQ/L Estimat Glomerular Filtration Rate 114 ML/MIN Culture Results Microbiology Date/Time Source Procedure Growth Status 06/10/17 23:40 Blood Peripheral Aerobic Blood Culture - Preliminary NO GROWTH IN 2 DAYS Resulted 06/10/17 23:40 Blood Peripheral Anaerobic Blood Culture - Preliminary NO GROWTH IN 2 DAYS Resulted 06/10/17 23:40 Blood Peripheral Aerobic Blood Culture - Preliminary NO GROWTH IN 2 DAYS Resulted 06/10/17 23:40 Blood Peripheral Anaerobic Blood Culture - Preliminary NO GROWTH IN 2 DAYS Resulted Administered Medications Medications (Trade) Dose Ordered Sig/Antonia Route PRN Reason Start Time Stop Time Status Last Admin Dose Admin Sodium Chloride 1,000 ml @ 100 mls/hr Q10H IV 06/11/17 02:03 06/12/17 05:06 Sodium Chloride (NS Flush) 2 ml BID IV FLUSH 06/11/17 09:00 06/12/17 07:45 Pantoprazole Sodium (Protonix Inj) 40 mg Q24H IV PUSH 06/11/17 06:00 06/12/17 05:05 Oxycodone HCl (Roxicodone) 5 mg Q4H PRN PO pain 3-10 06/11/17 02:15 06/11/17 22:03 Granisetron HCl (Kytril Inj) 1 mg DAILY IV PUSH 06/12/17 09:00 06/15/17 10:00 06/12/17 07:41 Dexamethasone Sodium Phosphate (Decadron Inj) 8 mg TID NEB IV PUSH 06/12/17 08:00 06/12/17 07:41 Objective Remarks GENERAL: Middle aged female upright in bed in [facility]. SKIN: Warm and dry. HEAD: Normocephalic. EYES: No injection or drainage. NECK: Supple, trachea midline. CARDIOVASCULAR: Regular rate and rhythm RESPIRATORY: Breath sounds equal bilaterally. No accessory muscle use. GASTROINTESTINAL: Abdomen soft, non-tender, nondistended. EXTREMITIES: No cyanosis NEUROLOGICAL: awake and alert, normal speech. moving extremities. Assessment/Plan Problem List: (1) Nausea & vomiting ICD Codes: R11.2 - Nausea with vomiting, unspecified Status: Acute Plan: 06/12: advance to diet. continue anti-emetics. stop antibiotics --due to the chemotherapy. --improving --receiving anti-emetics (2) Breast cancer ICD Codes: C50.919 - Malignant neoplasm of unspecified site of unspecified female breast Plan: --Triple-negative right breast cancer, currently on neoadjuvant dose- dense Adriamycin and Cytoxan chemotherapy. --last chemotherapy was last Sunday. (3) Leukocytosis, unspecified ICD Codes: D72.829 - Elevated white blood cell count, unspecified Status: Acute Plan: -d/t Neulasta --BC no growth --no sign of infection Assessment 52y/o female admitted with intractable nausea, vomiting and leukocytosis. h/o Arthritis. Hypertension. Lyme disease. Right breast cancer. Attending Statement no more nausea, vomiting or hematemesis Never had diarrhea. C/O constipation. D/C C. diff precautions. Lactulose for constipation. Afebrile. D/C antibiotics. Leucocytosis is due to neulasta. Kytril and decadron for N/V if remains stable then d/c home tomorrow. The exam, history, and the medical decision-making described in the above note were completed with the assistance of the mid-level provider. I reviewed and agree with the findings presented. I attest that I had a [id number] encounter with the patient on the same day, and personally performed and documented my assessment and findings in the medical record. Tamika Rodarte Jun 12, 2017 11:16 Roddy Silver MD Jun 13, 2017 01:08
--- NOTE | 2017-06-12 12:31 | HHI.PR ---
Subjective Remarks up in chair feeling back to her baseline ambulating in afebrile Objective Objective Results - Vital Signs Date Time Temp Pulse Resp B/P (MAP) Pulse Ox O2 Delivery O2 Flow Rate FiO2 06/12/17 10:00 21 06/12/17 08:00 97.1 92 16 140/70 (93) 99 06/12/17 05:00 88 06/12/17 04:00 97.0 93 17 141/71 (94) 94 06/12/17 00:00 96 06/12/17 00:00 98.6 96 18 117/69 (85) 100 06/11/17 21:23 21 06/11/17 20:00 99.5 94 17 141/76 (97) 99 06/11/17 16:00 98.5 92 16 140/66 (90) 100 I/O 06/11/17 06/11/17 06/11/17 06/12/17 06/12/17 06/12/17 07:00 15:00 23:00 07:00 15:00 23:00 Intake Total 1100 ml 1600 ml 1300 ml Output Total 300 ml Balance 800 ml 1600 ml 1300 ml Intake Oral 1300 ml IV Total 1100 ml 1600 ml Output Urine Total 300 ml # Voids 1 4 Result Diagram: 06/12/17 0755 06/12/17 0755 ROS General: Fatigue (improving), Weakness, Other (10 point ROS done positives noted) Physical Exam Physical Exam PHYSICAL EXAMINATION GENERAL: This is an female who appears to be in no acute distress. She is alert and awake, able to be ambulatory in room HEAD: Normocephalic Facial features appear symmetric. OROPHARYNGEAL: Oropharynx without erythema or edema. NECK: Supple. No nuchal rigidity or lymphadenopathy. Trachea midline without deviation. CARDIAC: Regular rhythm, regular rate, S1 and S2 are heard. LUNGS: Clear to auscultation bilaterally. No shortness of breath. ABDOMEN: Round, Soft, nontender, no organomegaly or masses. Bowel sounds active EXTREMITIES: no edema. Her extremities warm to touch NEUROLOGICAL: Patient mood and affect appropriate. SKIN:Warm and moist A/P Assessment and Plan 1. Leukocytosis unspecified. Severe, reviewing labs trending down slowly, 63.5 , probable secondary to Neulasta per oncology note Patient is afebrile, alert oriented does not appear to be septic. Appreciate oncology input 2. Nausea and vomiting, possible gastroenteritis., Sometimes improved with IV hydration, probable secondary to #3, stool culture pending, not collected yet 3. History of breast cancer currently receiving chemotherapy treatment., Second treatment 4 days ago this past Sunday, symptoms occurred within 48 hours of treatment 4. History of hypertension which is now benign., Medical management stable trends 5. Dizziness., Resolved 6. Tachycardia., Resolved Vital signs normal trends Discharge planning dependent on patient's symptoms, possible today Discussed with patient Discussed with nurse Discussed with Dr. Mcgrath, seen on his behalf Beatrice Ochoa Jun 12, 2017 12:31
[2017-06-12] MEDS: LACTULOSE SYRUP 20 GM/30 ML CUP PO SCH ×3 (13:08→20:13)
[2017-06-12] MEDS ORDERED: PHARMACY ORDERED LAB ONE (15:45)
[2017-06-12] MEDS: DOCUSATE SODIUM 100 MG CAP PO SCH (16:56)
[2017-06-12] MEDS: POTASSIUM CHLORIDE 20 MEQ CONTROLLED RELEASE TAB PO SCH (20:16)
[2017-06-13] VITALS: PULSE 87
[2017-06-13 00:25] VITALS: BP 157/80; PULSE 91; RESP 17; TEMP 98.5; O2SAT 100
[2017-06-13 04:00] VITALS: PULSE 111
[2017-06-13 04:25] VITALS: BP 156/77; PULSE 93; RESP 17; TEMP 97.4; O2SAT 98
[2017-06-13] MEDS: PANTOPRAZOLE SODIUM 40 MG VIAL IV PUSH SCH (05:41)
[2017-06-13] MEDS: SODIUM CHLOR 0.9% 1000 ML INJ 1,000 ML IV SCH (05:42)
[2017-06-13 07:50] VITALS: BP 131/64; PULSE 77; RESP 20; TEMP 96.3; O2SAT 100
[2017-06-13] MEDS: LACTULOSE SYRUP 20 GM/30 ML CUP PO SCH ×2 (08:20→12:53)
[2017-06-13] MEDS: SODIUM CHLORIDE 0.9% FLUSH 10 ML FLUSH IV FLUSH SCH (09:00)
[2017-06-13] MEDS: GRANISETRON HCL 1 MG/ML VIAL IV PUSH SCH (09:04)
[2017-06-13] MEDS: POTASSIUM CHLORIDE 20 MEQ CONTROLLED RELEASE TAB PO SCH (09:05)
[2017-06-13] MEDS: DOCUSATE SODIUM 100 MG CAP PO SCH ×2 (09:05→13:00)
[2017-06-13] MEDS: DEXAMETHASONE SOD PHOS 4 MG/ML VIAL IV PUSH SCH (09:05)
[2017-06-13 09:29] LABS: HEMATOCRIT 28.1 % (35.0-46.0); MEAN CELL VOLUME 79.6 FL (80.0-100.0); MEAN CORPUSCULAR HEMOGLOBIN 26.7 PG (27.0-34.0); MEAN CORPUSCULAR HGB CONC 33.5 % (32.0-36.0); PLATELET COUNT 253 TH/MM3 (150-450); RED BLOOD COUNT 3.53 MIL/MM3 (4.00-5.30); RED CELL DISTRIBUTION WIDTH 14.8 % (11.6-17.2); WHITE BLOOD COUNT 25.7 TH/MM3 (4.0-11.0)
[2017-06-13 09:42] LABS: POTASSIUM 3.7 MEQ/L (3.5-5.1)
[2017-06-13 10:04] LABS: HEMO FLAGS AUTO DIFF
--- NOTE | 2017-06-13 11:38 | PD.ONC.PN ---
Subjective Subjective Remarks Afebrile overnight. patient resting in room in nad. Nausea completely gone. No vomiting. Tolerating a regular diet. Wants to go home. Objective Data Date Time Temp Pulse Resp B/P (MAP) Pulse Ox O2 Delivery O2 Flow Rate FiO2 06/13/17 10:08 21 06/13/17 07:50 96.3 77 20 131/64 (86) 100 06/13/17 04:25 97.4 93 17 156/77 (103) 98 06/13/17 04:00 111 06/13/17 00:25 98.5 91 17 157/80 (105) 100 06/13/17 00:00 87 06/12/17 20:20 98.3 103 17 156/75 (102) 06/12/17 20:00 92 06/12/17 16:00 98.8 100 16 142/72 (95) 99 06/12/17 12:54 96.9 94 16 158/71 (100) 97 Result Diagram: 06/13/17 0854 06/13/17 0854 Laboratory Results Laboratory Tests Test 06/13/17 08:54 White Blood Count 25.7 TH/MM3 Red Blood Count 3.53 MIL/MM3 Hemoglobin 9.4 GM/DL Hematocrit 28.1 % Mean Corpuscular Volume 79.6 FL Mean Corpuscular Hemoglobin 26.7 PG Mean Corpuscular Hemoglobin Concent 33.5 % Red Cell Distribution Width 14.8 % Platelet Count 253 TH/MM3 Mean Platelet Volume 8.9 FL CBC Comment AUTO DIFF Blood Urea Nitrogen 10 MG/DL Creatinine 0.66 MG/DL Random Glucose 134 MG/DL Calcium Level 8.3 MG/DL Sodium Level 137 MEQ/L Potassium Level 3.7 MEQ/L Chloride Level 107 MEQ/L Carbon Dioxide Level 23.0 MEQ/L Anion Gap 7 MEQ/L Estimat Glomerular Filtration Rate 114 ML/MIN Culture Results Microbiology Date/Time Source Procedure Growth Status 06/10/17 23:40 Blood Peripheral Aerobic Blood Culture - Preliminary NO GROWTH IN 3 DAYS Resulted 06/10/17 23:40 Blood Peripheral Anaerobic Blood Culture - Preliminary NO GROWTH IN 3 DAYS Resulted 06/10/17 23:40 Blood Peripheral Aerobic Blood Culture - Preliminary NO GROWTH IN 3 DAYS Resulted 06/10/17 23:40 Blood Peripheral Anaerobic Blood Culture - Preliminary NO GROWTH IN 3 DAYS Resulted Administered Medications Medications (Trade) Dose Ordered Sig/Antonia Route PRN Reason Start Time Stop Time Status Last Admin Dose Admin Sodium Chloride 1,000 ml @ 100 mls/hr Q10H IV 06/11/17 02:03 06/13/17 05:42 Sodium Chloride (NS Flush) 2 ml BID IV FLUSH 06/11/17 09:00 06/12/17 07:45 Pantoprazole Sodium (Protonix Inj) 40 mg Q24H IV PUSH 06/11/17 06:00 06/13/17 05:41 Oxycodone HCl (Roxicodone) 5 mg Q4H PRN PO pain 3-10 06/11/17 02:15 06/13/17 05:46 Granisetron HCl (Kytril Inj) 1 mg DAILY IV PUSH 06/12/17 09:00 06/15/17 10:00 06/13/17 09:04 Dexamethasone Sodium Phosphate (Decadron Inj) 8 mg TID NEB IV PUSH 06/12/17 08:00 06/13/17 09:05 Lactulose (Lactulose Liq) 30 ml QID PO 06/12/17 13:00 06/12/17 20:13 Docusate Sodium (Colace) 100 mg TID PO 06/12/17 18:00 06/13/17 09:05 Potassium Chloride (KCl) 20 meq Q12HR PO 06/12/17 21:00 06/13/17 09:05 Objective Remarks GENERAL: Middle aged female upright in chair next to bed eating breakfast. SKIN: Warm and dry. HEAD: Normocephalic. EYES: No scleral icterus. No injection or drainage. NECK: Supple, trachea midline. CARDIOVASCULAR: Regular rate and rhythm RESPIRATORY: Breath sounds equal bilaterally. No accessory muscle use. GASTROINTESTINAL: Abdomen soft, non-tender, nondistended. EXTREMITIES: No cyanosis. mild edema, bilateral lower extremities. NEUROLOGICAL: No obvious focal deficit. Awake, alert, and oriented x3. Assessment/Plan Problem List: (1) Nausea & vomiting ICD Codes: R11.2 - Nausea with vomiting, unspecified Status: Acute Plan: 06/13: stop steroids. patient clear for discharge. will give script for Emend for next cycle of chemotherapy. --due to the chemotherapy. --improving --receiving anti-emetics (2) Breast cancer ICD Codes: C50.919 - Malignant neoplasm of unspecified site of unspecified female breast Status: Acute Plan: --Triple-negative right breast cancer, currently on neoadjuvant dose- dense Adriamycin and Cytoxan chemotherapy. --last chemotherapy was last Sunday. (3) Leukocytosis, unspecified ICD Codes: D72.829 - Elevated white blood cell count, unspecified Status: Acute Plan: -d/t Neulasta --BC no growth --no sign of infection Assessment 52y/o female admitted with intractable nausea, vomiting and leukocytosis. h/o Arthritis. Hypertension. Lyme disease. Right breast cancer. Attending Statement better No More N/V ok to d/c emend script for next cycle chemo. Tamika Rodarte Jun 13, 2017 11:38 Roddy Silver MD Jun 13, 2017 18:21
[2017-06-13] MEDS ORDERED: EMEN80PA PO (11:39)
[2017-06-13 11:50] VITALS: BP 154/78; PULSE 87; RESP 20; TEMP 97.1; O2SAT 100
[2017-06-13] MEDS ORDERED: ARTIFICIAL TEARS OPTH SOLN 15 ML BTL EACH EYE PRN (13:00)
[2017-06-13 13:04] LABS: BANDS 10 % (0-6); NEUTROPHIL # MANUAL DIFF 24.7 TH/MM3 (1.8-7.7); POLYS (SEG NEUTROPHILS) 86 % (16-70); WBC DIFF SAMPLE 100
[2017-06-13 13:05] LABS: PLATELET ESTIMATE SMEAR NORMAL (NORMAL); PLATELET MORPHOLOGY NORMAL (NORMAL); SCAN/DIFF FINAL DIFF MANUAL
--- NOTE | 2017-06-13 13:43 | HHI.DCPOC ---
Discharge Care Plan Diagnosis: (1) Nausea & vomiting Your Health Problems Are: Appetite Changes Goals to Promote Your Health * To prevent worsening of your condition and complications * To maintain your health at the optimal level Directions to Meet Your Goals Take your medications as prescribed Follow your dietary instruction Follow activity as directed Keep your appointments as scheduled Take your immunizations and boosters as scheduled If your symptoms worsen call your PCP, if no PCP go to Urgent Care Center or Emergency Room Smoking is Dangerous to Your Health. Avoid second hand smoke Call the 24-hour hour crisis hotline for domestic abuse at Sita Drew Jun 13, 2017 13:43
--- NOTE | 2017-06-13 13:44 | HHI.PR ---
Subjective Subjective Remarks No nausea, no vomiting Tolerating diet well No fever Anxious to go home Has been cleared by oncology Daughter at bedside Review of Systems Constitutional Constitutional Remarks 12 point review of systems completed, negative except as noted above Vitals/Results Vital Signs Vital Signs Date Time Temp Pulse Resp B/P (MAP) Pulse Ox O2 Delivery O2 Flow Rate FiO2 06/13/17 10:08 21 06/13/17 07:50 96.3 77 20 131/64 (86) 100 06/13/17 04:25 97.4 93 17 156/77 (103) 98 06/13/17 04:00 111 06/13/17 00:25 98.5 91 17 157/80 (105) 100 06/13/17 00:00 87 06/12/17 20:20 98.3 103 17 156/75 (102) 06/12/17 20:00 92 06/12/17 16:00 98.8 100 16 142/72 (95) 99 CBC/BMP: 06/13/17 0854 06/13/17 0854 Lab Results Laboratory Tests Test 06/13/17 08:54 White Blood Count 25.7 TH/MM3 Red Blood Count 3.53 MIL/MM3 Hemoglobin 9.4 GM/DL Hematocrit 28.1 % Mean Corpuscular Volume 79.6 FL Mean Corpuscular Hemoglobin 26.7 PG Mean Corpuscular Hemoglobin Concent 33.5 % Red Cell Distribution Width 14.8 % Platelet Count 253 TH/MM3 Mean Platelet Volume 8.9 FL CBC Comment AUTO DIFF Differential Total Cells Counted 100 Neutrophils % (Manual) 86 % Band Neutrophils % 10 % Lymphocytes % 3 % Monocytes % 1 % Neutrophils # (Manual) 24.7 TH/MM3 Differential Comment FINAL DIFF MANUAL Platelet Estimate NORMAL Platelet Morphology Comment NORMAL Blood Urea Nitrogen 10 MG/DL Creatinine 0.66 MG/DL Random Glucose 134 MG/DL Calcium Level 8.3 MG/DL Sodium Level 137 MEQ/L Potassium Level 3.7 MEQ/L Chloride Level 107 MEQ/L Carbon Dioxide Level 23.0 MEQ/L Anion Gap 7 MEQ/L Estimat Glomerular Filtration Rate 114 ML/MIN Physical Exam General General Appearance: Well Developed, Well Nourished, No Acute Distress, Comfortable Eyes Eye Exam: Pupils Equal, Pupils Reactive Ears & Nose Ears & Nose Exam: Nasal Mucosa Pajonal Throat Throat Exam: Oral Mucosa Pajonal & Moist Neck Neck Exam: Neck Supple, Trachea Midline Pulmonary Resp Exam: Clear Bilaterally Cardiology CV Exam: Regular, Good Perfusion Gastrointestinal/Abdomen GI Exam: Soft, Non-Tender, Bowel Sounds Present, Non-Distended Musculoskeletal MS Exam: Joints Intact Integumentary Skin Exam: Warm, Dry Extremeties Extremities Exam: No Edema, Pedal Pulses Palpable Neurologic Neuro Exam: Alert, Awake, Oriented, Speech Clear, Moving All Extremities, No Focal Deficits Psychiatric Psych Exam: Appropriate Responses VTE Prophylaxis VTE Prophylaxis Device: SCDs PUD Prophylasis PUD Prophylaxis: Protonix Assessment/Plan Assessment/Plan Nausea vomiting, possible gastroenteritis Tachycardia Dizziness -Tolerating diet well, DC IV fluids -Has not had anymore diarrhea -Tolerating diet well Leukocytosis, received Neulasta -Patient clinically stable, does not appear septic. -White blood cell count trending down, no fever Triple negative breast cancer, currently undergoing chemotherapy -Oncology following -Patient to resume chemotherapy treatments as outpatient when discharged Hypertension -Continue medical management SCDs for DVT prophylaxis Protonix for GI prophylaxis Symptoms improved, tolerating diet well. No nausea, no vomiting No more diarrhea Afebrile WBC trending down Cleared by oncology for discharge Patient stable for discharge home Follow-up with oncology Follow-up with PCP Continue with heart healthy diet Activity as tolerated Discussed with patient and daughter Discussed with nurse Discussed with Dr. Mcgrath This patient was seen by myself and Dr. Mcgrath, this note is written on his behalf Discharge Minutes: 40 Sita Drew Jun 13, 2017 13:44
--- NOTE | 2017-06-13 17:52 | HHI.DS ---
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 CBC/BMP: 06/13/17 0854 06/13/17 0854 Significant Findings Laboratory Tests Test 06/10/17 23:30 06/11/17 01:55 06/11/17 11:00 06/12/17 07:55 White Blood Count 76.2 TH/MM3 (4.0-11.0) 63.5 TH/MM3 (4.0-11.0) 47.6 TH/MM3 (4.0-11.0) Hemoglobin 10.7 GM/DL (11.6-15.3) 10.0 GM/DL (11.6-15.3) 9.4 GM/DL (11.6-15.3) Hematocrit 33.9 % (35.0-46.0) 31.8 % (35.0-46.0) 28.7 % (35.0-46.0) Mean Corpuscular Volume 79.4 FL (80.0-100.0) Mean Corpuscular Hemoglobin 25.0 PG (27.0-34.0) 25.3 PG (27.0-34.0) 26.4 PG (27.0-34.0) Mean Corpuscular Hemoglobin Concent 31.5 % (32.0-36.0) 31.5 % (32.0-36.0) Neutrophils % (Manual) 90 % (16-70) 85 % (16-70) Lymphocytes % 4 % (9-44) 1 % (9-44) Neutrophils # (Manual) 72.4 TH/MM3 (1.8-7.7) 45.7 TH/MM3 (1.8-7.7) Aspartate Amino Transf (AST/SGOT) 10 U/L (15-37) Urine Bacteria RARE /hpf (NONE) Red Blood Count 3.96 MIL/MM3 (4.00-5.30) 3.57 MIL/MM3 (4.00-5.30) Neutrophils (%) (Auto) 96.5 % (16.0-70.0) Lymphocytes (%) (Auto) 2.1 % (9.0-44.0) Neutrophils # (Auto) 45.9 TH/MM3 (1.8-7.7) Band Neutrophils % 10 % (0-6) Toxic Vacuolation PRESENT (NONE SEEN) Dohle Bodies PRESENT (NONE SEEN) Calcium Level 8.0 MG/DL (8.5-10.1) Chloride Level 109 MEQ/L (98-107) Test 06/13/17 08:54 White Blood Count 25.7 TH/MM3 (4.0-11.0) Red Blood Count 3.53 MIL/MM3 (4.00-5.30) Hemoglobin 9.4 GM/DL (11.6-15.3) Hematocrit 28.1 % (35.0-46.0) Mean Corpuscular Volume 79.6 FL (80.0-100.0) Mean Corpuscular Hemoglobin 26.7 PG (27.0-34.0) Neutrophils % (Manual) 86 % (16-70) Band Neutrophils % 10 % (0-6) Lymphocytes % 3 % (9-44) Neutrophils # (Manual) 24.7 TH/MM3 (1.8-7.7) Random Glucose 134 MG/DL (74-106) Calcium Level 8.3 MG/DL (8.5-10.1) Hospital Course This is a pleasant 52-year-old black female who was recently diagnosed with Triple negative right breast cancer in February of 2017. She has started a five- month chemotherapy regimen and had her second treatment this past Sunday which was 3 days ago. She noticed 48 hours before admission nausea and vomiting. She notes also approximately three loose diarrhea stools yesterday. The patient stated that she also had chills. Her temperature was 99.2. She felt that her symptoms were uncontrolled to the point that she needed to come to the emergency room for further evaluation. The patient denied any headaches. No chest pain. No shortness of breath. She did feel weak, especially when standing and felt her heart racing when she attempted any type of activity. She was evaluated in the emergency room, had laboratory workup done. DIAGNOSTIC DATA WBC count initially 76.2, now 63.5, hemoglobin 10, hematocrit 31.8, platelet count 347, MCH 25.3, MCHC 31.5, neutrophil percentage band 90, normal platelet estimate. PT/INR is 1. PT is 10.58, APTT 25.9. Chemistry: Sodium 140, potassium 3.7, chloride 107, carbon dioxide 24.6, BUN 7, creatinine 0.76. AST is 10. Procalcitonin is pending. Urine is clear with rare bacteria. Culture is not indicated. IMAGING STUDIES N/A. Patient was admitted to the hospital with the following diagnoses During the hospital course, the following took place Nausea vomiting, possible gastroenteritis Tachycardia Dizziness -Patient was admitted, put on IV fluids. Initially, there was concern that the leukocytosis was due to infection and therefore she was put on antibiotics. She had received recent Neulasta -At the recommendation of oncology, antibiotics were discontinued, patient was not septic -Symptoms improve on antiemetics -Was tolerating diet well -It was thought that her symptoms were due to chemotherapy -She did not have any more diarrhea Leukocytosis, received Neulasta -Patient clinically stable, did not appear septic. -White blood cell count trending down, no fever Triple-negative right breast cancer, currently on neoadjuvant dose-dense Adriamycin and Cytoxan chemotherapy. -Oncology following -Patient to resume chemotherapy treatments as outpatient when discharged -She was given prescription for antiemetics to be taken before her next chemotherapy Hypertension -Continued medical management Sarah-Boland tear due to severe retching per oncology -Continued on PPI -Antiemetics as needed ordered. Received Kytril and Decadron Was put on SCDs for DVT prophylaxis and Protonix for GI prophylaxis Symptoms improved, tolerated diet well. No nausea, no vomiting No more diarrhea Afebrile WBC trending down Cleared by oncology for discharge Patient stable for discharge home Instructed to: Follow-up with oncology Follow-up with PCP Continue with heart healthy diet Activity as tolerated Pt Condition on Discharge: Stable Discharge Disposition: Discharge Home Discharge Instructions DIET: Follow Instructions for: Heart Healthy Diet Activities you can perform: Weight Bearing as Ron Follow up Referrals: Oncology PCP Follow-up @ [facility] New Medications: Aprepitant TriPack (Emend TriPack) 1 Pack 1 CAP PO DIRECTED for Nausea, #1 PACK 0 Refills Take 125 mg on day 1 then take 80 mg on days 2 and 3. Continued Medications: Alprazolam (Alprazolam) 0.25 Mg Tab 0.25 MG PO TID PRN for ANXIETY, TAB 0 Refills Loratadine (Claritin) 10 Mg Cap 10 MG PO DAILY for Allergy Management, CAP 0 Refills Oxycodone-Acetaminophen (Oxycodone-Acetaminophen) 5-325 mg Tab 1 TAB PO Q6H PRN for PAIN, TAB 0 Refills Prochlorperazine Maleate (Prochlorperazine Maleate) 10 Mg Tab 10 MG PO Q6H PRN for NAUSEA OR VOMITING, TAB 0 Refills Sita Drew. [facility] Jun 13, 2017 17:52
== END 2017-06-13 15:11 | disposition home or self-care (01) | DRG 917 ==
LOC: NEPC 22:54 → NEDA 06-11 01:45 → HOCB 06-11 05:33
PROVIDERS: ADMIT Specialist; ATTEND Specialist
DX: T45.1X5A Adverse effect of antineoplastic and immunosuppressive drugs, initial encounter (principal); K22.6 Gastro-esophageal laceration-hemorrhage syndrome; C77.3 Secondary and unspecified malignant neoplasm of axilla and upper limb lymph nodes; A69.20 Lyme disease, unspecified; C50.911 Malignant neoplasm of unspecified site of right female breast; R11.2 Nausea with vomiting, unspecified; D72.823 Leukemoid reaction; E86.0 Dehydration; R00.2 Palpitations; T45.8X5A Adverse effect of other primarily systemic and hematological agents, initial encounter; I10 Essential (primary) hypertension; E66.9 Obesity, unspecified; R00.0 Tachycardia, unspecified; M19.90 Unspecified osteoarthritis, unspecified site; R19.7 Diarrhea, unspecified; Z17.1 Estrogen receptor negative status [ER-]; Z80.3 Family history of malignant neoplasm of breast; Z88.5 Allergy status to narcotic agent; Z68.34 Body mass index [BMI] 34.0-34.9, adult; Z80.0 Family history of malignant neoplasm of digestive organs; Z91.013 Allergy to seafood
CPT/HCPCS: 80048; 80053; 81001; 83690; 84145; 85007; 85027; 85610; 85730; 87040; 96361; 96374; 96375; C9113; J0692; J1100; J1626; J2405; J3370; J7030; J7040